=== PATIENT | female | born 1950 | race Caucasian/White ===

== ENCOUNTER 2021-04-30 10:22 | Outpatient (CLI) | payer MEDICARE | END 2021-04-30 10:23 | disposition home or self-care (01) | LOC: CSHMAMMO 10:22 | PROVIDERS: ATTEND Family Medicine Sports Medicine | DX: Z12.31 Encounter for screening mammogram for malignant neoplasm of breast (principal); Z80.3 Family history of malignant neoplasm of breast; Z85.3 Personal history of malignant neoplasm of breast | CPT/HCPCS: 77063; 77067 ==

== ENCOUNTER 2022-02-11 19:26 | Inpatient (IN) | payer MEDICARE ==
[~2022-02-11 19:26] MED LIST: Iopamidol 300 61% 100 ML VIAL FS ONE
[2022-02-11 19:50] LABS: #Basophils 0.1 10x3/uL (0.0-0.2); #Eosinphils 0.2 10x3/uL (0.0-0.5); #Monocytes 0.3 10x3/uL (0.0-1.1); #Neutrophils 14.8 10x3/uL (1.5-8.4); %Basophils 0.4 % (0.0-2.0); %Eosinophils 1.1 % (0.0-6.0); %Lymphocytes 2.7 % (18.0-47.0); %Monocytes 1.6 % (0.0-10.0); %Neutrophils 93.8 % (40.0-75.0); Hemoglobin 13.2 g/dL (12.0-15.5); Mean Corpuscular HGB CONC 35.9 g/dL (32.0-36.0); Mean Corpuscular Hemoglobin 32.4 pg (27.0-33.0); Mean Corpuscular Volume 90.2 fl (81.6-98.3); Platelet Count 464 10x3/uL (150-450); RBC Distribution Width 12.5 % (11.5-14.5); Red Blood Cell (RBC) Count 4.08 10x6/uL (3.90-5.03); White Blood Cell (WBC) Count 15.8 10x3/uL (3.5-10.5)
[2022-02-11 20:01] LABS: ALT (SGPT) 9 U/L (8-55); AST (SGOT) 10 U/L (5-34); Alkaline Phosphatase 94 U/L (40-110); Anion Gap 14 mmol/L (10-20); BUN (Urea Nitrogen) 12 mg/dL (9.8-20.1); Bilirubin, Total 0.3 mg/dL (0.2-1.2); Calc. Creatinine Clearance 0 mL/min (70-130); Calcium 9.4 mg/dL (7.8-10.44); Carbon Dioxide 23 mmol/L (23-31); Chloride 93 mmol/L (98-107); Estimated GFR 96; Globulin 2.8 g/dL (2.4-3.5); Glucose 170 mg/dL (80-115); Potassium 4.4 mmol/L (3.5-5.1); Protein, Total 6.8 g/dL (5.8-8.1); Sodium 126 mmol/L (136-145)
[2022-02-11] MEDS ORDERED: Acetaminophen 500 MG TAB ONE (20:21)
[2022-02-11] MEDS ORDERED: Ketorolac Tromethamine 30 MG/ML VIAL ONE (21:47)
[2022-02-11] MEDS ORDERED: Acetaminophen 325 MG TAB PO PRN (23:39)
[2022-02-11] MEDS ORDERED: Morphine 4 MG/ML VIAL SLOW IVP PRN (23:39)
[2022-02-12] MEDS: Sodium Chloride 0.9% 1,000 ML IV SCH ×4 (01:07→19:36)
[2022-02-12] MEDS: HYDROcodone/Acetaminophen 7.5/325 mg Tablet PO PRN ×5 (01:11→21:36)
[2022-02-12 01:12] LABS: SARS-CoV-2 NAA Rapid Test Not Detected (NotDetected)
[2022-02-12] MEDS: Nicotine 21 MG PATCH TD SCH ×2 (03:02→22:18)
[2022-02-12 05:17] LABS: Hemoglobin 11.6 g/dL (12.0-15.5); Mean Corpuscular HGB CONC 35.2 g/dL (32.0-36.0); Mean Corpuscular Hemoglobin 31.9 pg (27.0-33.0); Mean Corpuscular Volume 90.7 fl (81.6-98.3); Mean Platelet Volume 8.4 fl (7.4-10.4); Platelet Count 367 10x3/uL (150-450); RBC Distribution Width 12.4 % (11.5-14.5); Red Blood Cell (RBC) Count 3.64 10x6/uL (3.90-5.03); White Blood Cell (WBC) Count 20.3 10x3/uL (3.5-10.5)
[2022-02-12 05:27] LABS: Anion Gap 13 mmol/L (10-20); BUN (Urea Nitrogen) 8 mg/dL (9.8-20.1); Calc. Creatinine Clearance 118 mL/min (70-130); Calcium 8.5 mg/dL (7.8-10.44); Carbon Dioxide 24 mmol/L (23-31); Chloride 97 mmol/L (98-107); Estimated GFR 98; Glucose 154 mg/dL (80-115); Magnesium 1.7 mg/dL (1.6-2.6); Potassium 4.5 mmol/L (3.5-5.1); Sodium 129 mmol/L (136-145)
[2022-02-12 05:58] LABS: MDiff Complete? YES
[2022-02-12 06:06] LABS: Band 14 % (5-11); Lymphocytes 4 % (21-51); Monocytes 3 % (0-10); Neutrophil 79 % (42-75)
[2022-02-12 06:08] LABS: Platelet Morphology Comment Appears Adequate; RBC Morphology Normal
[2022-02-12] MEDS ORDERED: Amlodipine 5 mg/Benazepril 20 mg CAP PO SCH (09:00)
[2022-02-12] MEDS: Loratadine 10 MG TAB PO SCH (11:02)
[2022-02-12] MEDS: Calcium Carbonate 600 MG + Vit D TAB PO SCH (11:02)
[2022-02-12] MEDS: Lisinopril 20 MG TAB PO SCH (11:02)
[2022-02-12] MEDS: Amlodipine 5 MG TAB PO SCH (11:02)
[2022-02-12] MEDS: Enoxaparin Sodium 40 MG/0.4 ML SYRINGE SC SCH (11:02)
[2022-02-12] MEDS: cefTRIAXone\\ROCEPHIN 2 GM in Sodium Chloride 0.9% 100 ML IVPB SCH (11:13)
[2022-02-12] MEDS: guaiFENesin/DM ER PO SCH (17:19)
[2022-02-12] MEDS: Atorvastatin Calcium 10 MG TAB PO SCH (20:46)
[2022-02-12] MEDS: Azithromycin 500 MG in Sodium Chloride 0.9% 250 ML 250 ML IVPB SCH (20:47)
[2022-02-13] MEDS: guaiFENesin/DM ER PO SCH ×2 (02:54→17:35)
[2022-02-13] MEDS ORDERED: Albuterol Sulfate 2.5 mg/3 ml Neb NEB SCH (03:15)
[2022-02-13 04:24] LABS: Hemoglobin 11.7 g/dL (12.0-15.5); Mean Corpuscular HGB CONC 34.7 g/dL (32.0-36.0); Mean Corpuscular Hemoglobin 31.6 pg (27.0-33.0); Mean Corpuscular Volume 91.1 fl (81.6-98.3); Mean Platelet Volume 8.6 fl (7.4-10.4); Platelet Count 373 10x3/uL (150-450); RBC Distribution Width 12.7 % (11.5-14.5); White Blood Cell (WBC) Count 21.2 10x3/uL (3.5-10.5)
[2022-02-13 04:37] LABS: Anion Gap 10 mmol/L (10-20); BUN (Urea Nitrogen) 6 mg/dL (9.8-20.1); Calc. Creatinine Clearance 122 mL/min (70-130); Calcium 8.8 mg/dL (7.8-10.44); Carbon Dioxide 25 mmol/L (23-31); Chloride 97 mmol/L (98-107); Estimated GFR 99; Glucose 168 mg/dL (80-115); Potassium 4.2 mmol/L (3.5-5.1); Sodium 128 mmol/L (136-145)
[2022-02-13 04:44] LABS: MDiff Complete? YES
[2022-02-13 05:24] LABS: Band 5 % (5-11); Lymphocytes 3 % (21-51); Monocytes 7 % (0-10); Neutrophil 85 % (42-75)
[2022-02-13 05:26] LABS: Platelet Morphology Comment Appears Adequate; RBC Morphology Normal
[2022-02-13] MEDS: cefTRIAXone\\ROCEPHIN 2 GM in Sodium Chloride 0.9% 100 ML IVPB SCH (10:19)
[2022-02-13] MEDS: HYDROcodone/Acetaminophen 7.5/325 mg Tablet PO PRN ×2 (10:20→17:35)
[2022-02-13] MEDS: Amlodipine 5 MG TAB PO SCH (10:21)
[2022-02-13] MEDS: Lisinopril 20 MG TAB PO SCH (10:21)
[2022-02-13] MEDS: Enoxaparin Sodium 40 MG/0.4 ML SYRINGE SC SCH (10:22)
[2022-02-13] MEDS: Calcium Carbonate 600 MG + Vit D TAB PO SCH (10:22)
[2022-02-13] MEDS: Loratadine 10 MG TAB PO SCH (10:22)
[2022-02-13] MEDS ORDERED: methylPREDNISolone Sod Succ 40 MG VIAL IVP SCH ×2 (11:30→22:00)
[2022-02-13] MEDS ORDERED: Mometasone 200 MCG/Formoterol 5 MCG 120 PUFF INHALER INH SCH (11:45)
[2022-02-13] MEDS: Azithromycin 500 MG in Sodium Chloride 0.9% 250 ML 250 ML IVPB SCH (21:01)
[2022-02-13] MEDS: Atorvastatin Calcium 10 MG TAB PO SCH (21:02)
[2022-02-13] MEDS: Sodium Chloride 0.9% 1,000 ML IV SCH (23:14)
[2022-02-14] MEDS: Nicotine 21 MG PATCH TD SCH (00:15)
[2022-02-14] MEDS: Benzonatate 100 MG CAP PO PRN (01:56)
[2022-02-14] MEDS: guaiFENesin/DM ER PO SCH ×2 (01:57→14:02)
[2022-02-14] MEDS ORDERED: VANCOMYCIN 1.75 GM/350 ML BAG IVPB SCH (03:45)
[2022-02-14 03:48] LABS: Actual Bicarbonate (HCO3a) 26.4 mEq/L (22-28); Base Excess (BEa) 0.4 mEq/L (-2.0 to +3.0); CO2 Tension 47.8 mmHg (35.0-45.0); Calcium, Ionized (arterial) 1.15 mmol/L (1.12-1.30); Carboxyhemoglobin (COHb) 0.5 gm% (0.0-3.0); Hemoglobin (Hb) 13.7 g/dL (12.0-16.0); O2 Tension (PaO2), arterial 63.6 mmHg (> 80.0); Potassium - ABG Lab 4.2 mmol/L (3.70-5.30); Puncture Site RRA; pH, Arterial 7.36 (7.35-7.45)
[2022-02-14] MEDS ORDERED: VANCOMYCIN 1.75 GM/350 ML BAG 1.75 GM in Premix Bag 1 BAG IVPB SCH (04:00)
[2022-02-14 04:50] LABS: Anion Gap 11 mmol/L (10-20); BUN (Urea Nitrogen) 6 mg/dL (9.8-20.1); Calc. Creatinine Clearance 137 mL/min (70-130); Calcium 9.1 mg/dL (7.8-10.44); Carbon Dioxide 25 mmol/L (23-31); Chloride 91 mmol/L (98-107); Estimated GFR 102; Glucose 204 mg/dL (80-115); Magnesium 1.7 mg/dL (1.6-2.6); Potassium 4.4 mmol/L (3.5-5.1); Sodium 123 mmol/L (136-145)
[2022-02-14 04:56] LABS: Mean Corpuscular Hemoglobin 32.2 pg (27.0-33.0); Mean Corpuscular Volume 89.3 fl (81.6-98.3); Mean Platelet Volume 8.4 fl (7.4-10.4); Platelet Count 381 10x3/uL (150-450); RBC Distribution Width 12.2 % (11.5-14.5); Red Blood Cell (RBC) Count 3.73 10x6/uL (3.90-5.03); White Blood Cell (WBC) Count 30.8 10x3/uL (3.5-10.5)
[2022-02-14] MEDS: methylPREDNISolone Sod Succ 40 MG VIAL IVP SCH ×3 (05:00→16:54)
[2022-02-14] MEDS: Cefepime 2 GM in Sodium Chloride 0.9% 100 ML IVPB SCH ×3 (05:00→20:13)
[2022-02-14 05:10] LABS: MDiff Complete? YES
[2022-02-14 06:08] LABS: Band 13 % (5-11); Lymphocytes 1 % (21-51); Monocytes 3 % (0-10); Neutrophil 83 % (42-75)
[2022-02-14 06:09] LABS: Platelet Morphology Comment Appears Adequate; RBC Morphology Normal
[2022-02-14] MEDS ORDERED: Mometasone 200 MCG/Formoterol 5 MCG 120 PUFF INHALER INH SCH (06:30)
[2022-02-14] MEDS: Budesonide 0.5 MG/2 ML NEB NEB SCH ×2 (07:00→18:30)
[2022-02-14] MEDS: Arformoterol 15 MCG/2 ML NEB NEB SCH ×2 (07:00→18:30)
[2022-02-14 08:10] VITALS: BMI 30.4
[2022-02-14] MEDS: Lisinopril 20 MG TAB PO SCH (08:28)
[2022-02-14] MEDS: Enoxaparin Sodium 40 MG/0.4 ML SYRINGE SC SCH ×2 (08:28→08:41)
[2022-02-14] MEDS: Loratadine 10 MG TAB PO SCH (08:28)
[2022-02-14] MEDS: Amlodipine 5 MG TAB PO SCH (08:29)
[2022-02-14] MEDS: Calcium Carbonate 600 MG + Vit D TAB PO SCH (08:29)
[2022-02-14] MEDS: Sodium Chloride 0.9% 1,000 ML IV SCH (08:41)
[2022-02-14] MEDS ORDERED: Sodium Bicarbonate 2.5 MEQ/5 ML VIAL ONE (12:48)
[2022-02-14] MEDS ORDERED: Lidocaine 1% PF 5 ML VIAL ONE (12:48)
[2022-02-14] MEDS: HYDROcodone/Acetaminophen 7.5/325 mg Tablet PO PRN (14:02)
[2022-02-14] MEDS ORDERED: VANCOMYCIN 1.25 GM/250 ML BAG IVPB SCH (16:00)
[2022-02-14] MEDS: VANCOMYCIN 1.25 GM/250 ML BAG 1.25 GM in Premix Bag 1 BAG IVPB SCH (16:29)
[2022-02-14 18:34] LABS: BF Color Yellow; Body Fluid Source Thoracentesis Fluid; Clarity Cloudy/Turbid (Clear); Tube # EDTA
[2022-02-14 18:44] LABS: BF Segmented Neutrophils 83 %; Cell Count Non Hematic 10 %; Lymphocytes 7 %
[2022-02-14 19:33] LABS: Fluid, pH - Pleural Fld 7.09 (7.60 - 7.66)
[2022-02-14] MEDS: Atorvastatin Calcium 10 MG TAB PO SCH (20:14)
[2022-02-14] MEDS: Azithromycin 500 MG in Sodium Chloride 0.9% 250 ML 250 ML IVPB SCH (20:16)
[2022-02-14 20:43] LABS: Pleural Fluid, Amylase Less than 30 U/L (Not Available); Pleural Fluid, Glucose Less than 20 mg/dL; Pleural Fluid, LDH 1499 U/L (Not Available); Pleural Fluid, Protein 4.2 g/dL
[2022-02-15] MEDS: methylPREDNISolone Sod Succ 40 MG VIAL IVP SCH ×5 (00:09→23:51)
[2022-02-15] MEDS: Nicotine 21 MG PATCH TD SCH ×3 (00:10→23:13)
[2022-02-15] MEDS: guaiFENesin/DM ER PO SCH (02:12)
[2022-02-15] MEDS: VANCOMYCIN 1.25 GM/250 ML BAG 1.25 GM in Premix Bag 1 BAG IVPB SCH ×2 (03:25→16:21)
[2022-02-15 04:44] LABS: Hemoglobin 11.1 g/dL (12.0-15.5); Mean Corpuscular HGB CONC 35.1 g/dL (32.0-36.0); Mean Corpuscular Hemoglobin 31.9 pg (27.0-33.0); Mean Corpuscular Volume 90.8 fl (81.6-98.3); Mean Platelet Volume 8.7 fl (7.4-10.4); Platelet Count 374 10x3/uL (150-450); RBC Distribution Width 12.6 % (11.5-14.5); Red Blood Cell (RBC) Count 3.48 10x6/uL (3.90-5.03); White Blood Cell (WBC) Count 20.9 10x3/uL (3.5-10.5)
[2022-02-15 04:47] LABS: Anion Gap 12 mmol/L (10-20); BUN (Urea Nitrogen) 11 mg/dL (9.8-20.1); Calc. Creatinine Clearance 143 mL/min (70-130); Calcium 8.9 mg/dL (7.8-10.44); Carbon Dioxide 28 mmol/L (23-31); Chloride 95 mmol/L (98-107); Estimated GFR 101; Glucose 146 mg/dL (80-115); Potassium 4.8 mmol/L (3.5-5.1); Sodium 130 mmol/L (136-145)
[2022-02-15] MEDS: Cefepime 2 GM in Sodium Chloride 0.9% 100 ML IVPB SCH ×3 (05:08→20:36)
[2022-02-15 05:28] LABS: MDiff Complete? YES
[2022-02-15 05:32] LABS: Band 12 % (5-11); Lymphocytes 2 % (21-51); Monocytes 2 % (0-10); Neutrophil 84 % (42-75)
[2022-02-15] MEDS: Arformoterol 15 MCG/2 ML NEB NEB SCH ×2 (07:25→19:40)
[2022-02-15] MEDS: Budesonide 0.5 MG/2 ML NEB NEB SCH ×2 (07:30→19:40)
[2022-02-15] MEDS: Calcium Carbonate 600 MG + Vit D TAB PO SCH (08:22)
[2022-02-15] MEDS: Lisinopril 20 MG TAB PO SCH (08:22)
[2022-02-15] MEDS: Loratadine 10 MG TAB PO SCH (08:22)
[2022-02-15] MEDS: Amlodipine 5 MG TAB PO SCH (08:22)
[2022-02-15] MEDS: Enoxaparin Sodium 40 MG/0.4 ML SYRINGE SC SCH (08:23)
[2022-02-15] MEDS: guaiFENesin ER 600 MG TAB PO SCH ×2 (08:41→20:36)
[2022-02-15 15:43] LABS: Vancomycin, Trough 12.4 ug/mL
[2022-02-15] MEDS ORDERED: Docusate 100 MG CAP PO PRN (16:32)
[2022-02-15] MEDS: Atorvastatin Calcium 10 MG TAB PO SCH (20:36)
[2022-02-15] MEDS: Azithromycin 500 MG in Sodium Chloride 0.9% 250 ML 250 ML IVPB SCH (21:00)
[2022-02-16] MEDS: Cefepime 2 GM in Sodium Chloride 0.9% 100 ML IVPB SCH ×3 (04:14→21:20)
[2022-02-16] MEDS: VANCOMYCIN 1.25 GM/250 ML BAG 1.25 GM in Premix Bag 1 BAG IVPB SCH ×2 (04:24→14:55)
[2022-02-16] MEDS: methylPREDNISolone Sod Succ 40 MG VIAL IVP SCH ×2 (06:38→22:15)
[2022-02-16] MEDS: Budesonide 0.5 MG/2 ML NEB NEB SCH ×2 (07:18→19:36)
[2022-02-16] MEDS: Arformoterol 15 MCG/2 ML NEB NEB SCH ×2 (07:25→19:35)
[2022-02-16 08:08] LABS: #Eosinphils 0.1 10x3/uL (0.0-0.5); #Monocytes 0.7 10x3/uL (0.0-1.1); #Neutrophils 15.3 10x3/uL (1.5-8.4); %Basophils 0.2 % (0.0-2.0); %Eosinophils 0.7 % (0.0-6.0); %Lymphocytes 3.7 % (18.0-47.0); %Monocytes 4.3 % (0.0-10.0); %Neutrophils 89.6 % (40.0-75.0); Hemoglobin 10.8 g/dL (12.0-15.5); Mean Corpuscular HGB CONC 35.1 g/dL (32.0-36.0); Mean Corpuscular Hemoglobin 31.9 pg (27.0-33.0); Mean Corpuscular Volume 90.9 fl (81.6-98.3); Mean Platelet Volume 8.6 fl (7.4-10.4); Platelet Count 427 10x3/uL (150-450); RBC Distribution Width 12.5 % (11.5-14.5); Red Blood Cell (RBC) Count 3.39 10x6/uL (3.90-5.03)
[2022-02-16 08:21] LABS: Anion Gap 13 mmol/L (10-20); BUN (Urea Nitrogen) 12 mg/dL (9.8-20.1); Calc. Creatinine Clearance 140 mL/min (70-130); Calcium 8.4 mg/dL (7.8-10.44); Carbon Dioxide 26 mmol/L (23-31); Chloride 95 mmol/L (98-107); Estimated GFR 101; Glucose 185 mg/dL (80-115); Potassium 4.3 mmol/L (3.5-5.1); Sodium 130 mmol/L (136-145)
[2022-02-16] MEDS: Enoxaparin Sodium 40 MG/0.4 ML SYRINGE SC SCH (08:47)
[2022-02-16] MEDS: Amlodipine 5 MG TAB PO SCH (08:48)
[2022-02-16] MEDS: Loratadine 10 MG TAB PO SCH (08:48)
[2022-02-16] MEDS: Benzonatate 100 MG CAP PO PRN (08:48)
[2022-02-16] MEDS: Lisinopril 20 MG TAB PO SCH (08:48)
[2022-02-16] MEDS: HYDROcodone/Acetaminophen 7.5/325 mg Tablet PO PRN (08:48)
[2022-02-16] MEDS: guaiFENesin ER 600 MG TAB PO SCH ×2 (08:48→22:22)
[2022-02-16] MEDS: Calcium Carbonate 600 MG + Vit D TAB PO SCH (08:48)
[2022-02-16] MEDS ORDERED: Furosemide 40 MG/4 ML VIAL SLOW IVP SCH (09:00)
[2022-02-16] MEDS: Azithromycin 500 MG in Sodium Chloride 0.9% 250 ML 250 ML IVPB SCH (22:12)
[2022-02-16] MEDS: Atorvastatin Calcium 10 MG TAB PO SCH (22:13)
[2022-02-17] MEDS: Nicotine 21 MG PATCH TD SCH (01:47)
[2022-02-17] MEDS: Cefepime 2 GM in Sodium Chloride 0.9% 100 ML IVPB SCH ×3 (03:58→20:44)
[2022-02-17 04:06] LABS: #Basophils 0.1 10x3/uL (0.0-0.2); #Monocytes 0.4 10x3/uL (0.0-1.1); #Neutrophils 14.3 10x3/uL (1.5-8.4); %Basophils 0.5 % (0.0-2.0); %Lymphocytes 4.9 % (18.0-47.0); %Monocytes 2.4 % (0.0-10.0); %Neutrophils 88.4 % (40.0-75.0); Hemoglobin 11.1 g/dL (12.0-15.5); Mean Corpuscular HGB CONC 35.6 g/dL (32.0-36.0); Mean Corpuscular Hemoglobin 32.2 pg (27.0-33.0); Mean Corpuscular Volume 90.4 fl (81.6-98.3); Mean Platelet Volume 8.3 fl (7.4-10.4); Platelet Count 452 10x3/uL (150-450); RBC Distribution Width 12.7 % (11.5-14.5); Red Blood Cell (RBC) Count 3.45 10x6/uL (3.90-5.03); White Blood Cell (WBC) Count 16.2 10x3/uL (3.5-10.5)
[2022-02-17 04:14] LABS: Anion Gap 12 mmol/L (10-20); BUN (Urea Nitrogen) 12 mg/dL (9.8-20.1); Calc. Creatinine Clearance 132 mL/min (70-130); Calcium 8.6 mg/dL (7.8-10.44); Carbon Dioxide 31 mmol/L (23-31); Chloride 94 mmol/L (98-107); Estimated GFR 100; Glucose 196 mg/dL (80-115); Magnesium 1.9 mg/dL (1.6-2.6); Potassium 4.8 mmol/L (3.5-5.1); Sodium 132 mmol/L (136-145)
[2022-02-17] MEDS: Albuterol Sulfate 2.5 mg/3 ml Neb NEB PRN (04:28)
[2022-02-17] MEDS: VANCOMYCIN 1.25 GM/250 ML BAG 1.25 GM in Premix Bag 1 BAG IVPB SCH ×2 (04:47→16:53)
[2022-02-17 05:34] LABS: Vancomycin, Trough 12.3 ug/mL
[2022-02-17] MEDS: Budesonide 0.5 MG/2 ML NEB NEB SCH ×2 (06:57→19:24)
[2022-02-17] MEDS: Arformoterol 15 MCG/2 ML NEB NEB SCH ×2 (07:10→19:21)
[2022-02-17] MEDS: Benzonatate 100 MG CAP PO PRN (08:41)
[2022-02-17] MEDS: Calcium Carbonate 600 MG + Vit D TAB PO SCH (08:41)
[2022-02-17] MEDS: Lisinopril 20 MG TAB PO SCH (08:41)
[2022-02-17] MEDS: Loratadine 10 MG TAB PO SCH (08:41)
[2022-02-17] MEDS: guaiFENesin ER 600 MG TAB PO SCH ×2 (08:41→20:43)
[2022-02-17] MEDS: HYDROcodone/Acetaminophen 7.5/325 mg Tablet PO PRN (08:41)
[2022-02-17] MEDS: Amlodipine 5 MG TAB PO SCH (08:41)
[2022-02-17] MEDS: methylPREDNISolone Sod Succ 40 MG VIAL IVP SCH ×2 (08:41→20:43)
[2022-02-17] MEDS: Furosemide 40 MG TAB PO SCH (08:41)
[2022-02-17] MEDS: Enoxaparin Sodium 40 MG/0.4 ML SYRINGE SC SCH (08:41)
[2022-02-17] MEDS: Atorvastatin Calcium 10 MG TAB PO SCH (20:43)
[2022-02-17] MEDS: Azithromycin 500 MG in Sodium Chloride 0.9% 250 ML 250 ML IVPB SCH (20:44)
[2022-02-18] MEDS: Nicotine 21 MG PATCH TD SCH ×2 (01:11→23:52)
[2022-02-18] MEDS: Cefepime 2 GM in Sodium Chloride 0.9% 100 ML IVPB SCH ×3 (04:07→21:46)
[2022-02-18] MEDS: VANCOMYCIN 1.25 GM/250 ML BAG 1.25 GM in Premix Bag 1 BAG IVPB SCH ×2 (04:08→17:08)
[2022-02-18 04:58] LABS: Hemoglobin 11.1 g/dL (12.0-15.5); Mean Corpuscular HGB CONC 35.7 g/dL (32.0-36.0); Mean Corpuscular Volume 89.6 fl (81.6-98.3); Mean Platelet Volume 8.4 fl (7.4-10.4); Platelet Count 398 10x3/uL (150-450); RBC Distribution Width 12.8 % (11.5-14.5); Red Blood Cell (RBC) Count 3.47 10x6/uL (3.90-5.03); White Blood Cell (WBC) Count 17.6 10x3/uL (3.5-10.5)
[2022-02-18 05:23] LABS: Anion Gap 12 mmol/L (10-20); BUN (Urea Nitrogen) 10 mg/dL (9.8-20.1); Calc. Creatinine Clearance 130 mL/min (70-130); Calcium 8.4 mg/dL (7.8-10.44); Carbon Dioxide 31 mmol/L (23-31); Chloride 94 mmol/L (98-107); Estimated GFR 99; Glucose 187 mg/dL (80-115); Potassium 4.3 mmol/L (3.5-5.1); Sodium 133 mmol/L (136-145)
[2022-02-18] MEDS: Albuterol Sulfate 2.5 mg/3 ml Neb NEB PRN ×2 (05:23→06:55)
[2022-02-18 06:04] LABS: MDiff Complete? YES; Platelet Morphology Comment Appears Adequate
[2022-02-18 06:07] LABS: Band 2 % (5-11); Lymphocytes 8 % (21-51); Metamyelocyte 5 % (0-0); Monocytes 3 % (0-10); Neutrophil 82 % (42-75)
[2022-02-18] MEDS: Budesonide 0.5 MG/2 ML NEB NEB SCH ×2 (06:57→19:26)
[2022-02-18] MEDS: Arformoterol 15 MCG/2 ML NEB NEB SCH ×2 (07:10→19:25)
[2022-02-18] MEDS: Amlodipine 5 MG TAB PO SCH (08:44)
[2022-02-18] MEDS: guaiFENesin ER 600 MG TAB PO SCH ×2 (08:44→20:48)
[2022-02-18] MEDS: Furosemide 40 MG TAB PO SCH (08:45)
[2022-02-18] MEDS: Loratadine 10 MG TAB PO SCH (08:45)
[2022-02-18] MEDS: Lisinopril 20 MG TAB PO SCH (08:45)
[2022-02-18] MEDS: Calcium Carbonate 600 MG + Vit D TAB PO SCH (08:46)
[2022-02-18] MEDS: Enoxaparin Sodium 40 MG/0.4 ML SYRINGE SC SCH (08:47)
[2022-02-18] MEDS: methylPREDNISolone Sod Succ 40 MG VIAL IVP SCH ×2 (08:48→20:50)
[2022-02-18] MEDS: Atorvastatin Calcium 10 MG TAB PO SCH (20:47)
[2022-02-18] MEDS: Azithromycin 500 MG in Sodium Chloride 0.9% 250 ML 250 ML IVPB SCH (22:43)
[2022-02-19] MEDS: Albuterol Sulfate 2.5 mg/3 ml Neb NEB PRN (00:28)
[2022-02-19] MEDS: Cefepime 2 GM in Sodium Chloride 0.9% 100 ML IVPB SCH ×3 (03:50→12:02)
[2022-02-19] MEDS: VANCOMYCIN 1.25 GM/250 ML BAG 1.25 GM in Premix Bag 1 BAG IVPB SCH (04:45)
[2022-02-19] MEDS: Budesonide 0.5 MG/2 ML NEB NEB SCH (07:20)
[2022-02-19] MEDS: Arformoterol 15 MCG/2 ML NEB NEB SCH (07:25)
[2022-02-19] MEDS: Enoxaparin Sodium 40 MG/0.4 ML SYRINGE SC SCH (10:07)
[2022-02-19] MEDS: Amlodipine 5 MG TAB PO SCH (10:09)
[2022-02-19] MEDS: methylPREDNISolone Sod Succ 40 MG VIAL IVP SCH (10:09)
[2022-02-19] MEDS: Calcium Carbonate 600 MG + Vit D TAB PO SCH (10:10)
[2022-02-19] MEDS: Lisinopril 20 MG TAB PO SCH (10:10)
[2022-02-19] MEDS: guaiFENesin ER 600 MG TAB PO SCH (10:10)
[2022-02-19] MEDS: Furosemide 40 MG TAB PO SCH (10:10)
[2022-02-19] MEDS: Loratadine 10 MG TAB PO SCH (10:11)
[2022-02-19 12:43] VITALS: BP 157/7; TEMP 98.9
[2022-02-21 13:37] LABS: Fungus Stain Final report (.)
== END 2022-02-19 15:10 | disposition home or self-care (01) | DRG 871 ==
LOC: CSHERS 19:26 → CSHTELE 22:48 → CSHIMCU 02-14 03:43 → CSHTELE 02-16 05:40
PROVIDERS: ADMIT Family Medicine; ATTEND Family Medicine
PROC: 3E03329 Introduction of Other Anti-infective into Peripheral Vein, Percutaneous Approach (ICD-10-PCS; 2022-02-11)
PROC: 0W993ZZ Drainage of Right Pleural Cavity, Percutaneous Approach (ICD-10-PCS; principal; 2022-02-14)
DX: A41.59 Other Gram-negative sepsis (principal); J15.6 Pneumonia due to other Gram-negative bacteria; J96.01 Acute respiratory failure with hypoxia; J90 Pleural effusion, not elsewhere classified; E87.1 Hypo-osmolality and hyponatremia; J44.0 Chronic obstructive pulmonary disease with (acute) lower respiratory infection; J98.11 Atelectasis; Z20.822 Contact with and (suspected) exposure to COVID-19; F17.210 Nicotine dependence, cigarettes, uncomplicated; I10 Essential (primary) hypertension; E78.5 Hyperlipidemia, unspecified; Z85.3 Personal history of malignant neoplasm of breast; Z79.899 Other long term (current) drug therapy; Z79.52 Long term (current) use of systemic steroids
CPT/HCPCS: 32555; 36415; 36600; 71045; 71046; 71260; 80048; 80053; 80202; 82150; 82805; 82945; 83605; 83615; 83735; 83880; 84157; 84484; 85025; 87040; 87070; 87116; 87205; 87206; 87804; 87811; 88112; 88305; 88341; 88342; 89051; 93005; 93306; 94640; 94660; 94760; 96365; 96375; J0456; J0692; J0696; J1650; J1885; J1940; J1956; J2920; J3370; J3490; J7050; J7611; J7620; J7626; Q9967; U0002

== ENCOUNTER 2022-05-08 13:43 | Outpatient (CLI) | payer MEDICARE | END 2022-05-08 13:44 | disposition home or self-care (01) | LOC: CSHMAMMO 13:43 | PROVIDERS: ATTEND Family Medicine Sports Medicine | DX: Z12.31 Encounter for screening mammogram for malignant neoplasm of breast (principal); M85.851 Other specified disorders of bone density and structure, right thigh; Z78.0 Asymptomatic menopausal state; Z80.3 Family history of malignant neoplasm of breast; Z85.3 Personal history of malignant neoplasm of breast; Z98.890 Other specified postprocedural states; Z91.89 Other specified personal risk factors, not elsewhere classified | CPT/HCPCS: 77063; 77067; 77080 ==

== ENCOUNTER 2022-05-12 08:49 | Outpatient (CLI) | payer MEDICARE ==
[2022-05-12] MEDS ORDERED: Iopamidol 300 61% 100 ML VIAL FS ONE (12:12)
== END 2022-05-12 08:50 | disposition home or self-care (01) ==
LOC: CSHCT 08:49
PROVIDERS: ATTEND Internal Medicine Critical Care Medicine
DX: R91.1 Solitary pulmonary nodule (principal); R91.8 Other nonspecific abnormal finding of lung field; J90 Pleural effusion, not elsewhere classified; E27.8 Other specified disorders of adrenal gland
CPT/HCPCS: 71260; 82565

== ENCOUNTER 2022-10-08 10:27 | Outpatient (CLI) | payer MEDICARE | END 2022-10-08 10:28 | disposition home or self-care (01) | LOC: CSHCP 10:27 | PROVIDERS: ATTEND Internal Medicine Critical Care Medicine | DX: J44.9 Chronic obstructive pulmonary disease, unspecified (principal) | CPT/HCPCS: 94060; 94726; 94729; 94760 ==

== ENCOUNTER 2023-06-08 09:37 | Outpatient (CLI) | payer MEDICARE | END 2023-06-08 09:38 | disposition home or self-care (01) | LOC: CSHMAMMO 09:37 | PROVIDERS: ATTEND Family Medicine Sports Medicine | DX: Z12.31 Encounter for screening mammogram for malignant neoplasm of breast (principal); Z80.3 Family history of malignant neoplasm of breast; Z85.3 Personal history of malignant neoplasm of breast; Z91.89 Other specified personal risk factors, not elsewhere classified; Z98.890 Other specified postprocedural states | CPT/HCPCS: 77063; 77067 ==